=== PATIENT | female | born 1930 | race Caucasian/White ===

== ENCOUNTER 2017-01-20 15:22 | Inpatient (IN) ==
[2017-01-20] MEDS: PROTONIX IV SCH (17:38)
[2017-01-20] MEDS: SODIUM CHLORIDE 0.9% INJ SCH (17:38)
[2017-01-20] MEDS: ZOSYN 3.375 GM in NS 50 ML IV SCH (17:39)
--- NOTE | 2017-01-20 18:21 | Diag Imaging Result Doc PS360 ---
EXAM: CHEST-2 VIEWS HISTORY: SOB TECHNIQUE: AP and lateral chest COMMENT: There is no evidence of acute cardiac or pulmonary disease and compared to 05/22/2015 there is been no significant change in the appearance of the chest. IMPRESSION: Stable chest. Electronically signed by Zachary Calderón 01/20/2017 6:19 PM
[2017-01-20 18:53] LABS: HEMATOCRIT 37.9 % (37.0-47.0); MCH 30.1 PG (27-31); MCHC 31.7 g/dL (33-37); MPV 11.1 FL (7.4-10.4); RBC 3.99 XMIL (4.2-5.4)
[2017-01-20 19:09] LABS: INR 1.16; PROTIME 12.3 Seconds (9.2-11.7)
[2017-01-20 19:43] LABS: ALBUMIN 3.6 g/dL (3.5-5.0); CALCIUM 8.5 mg/dL (8.8-10.2); POTASSIUM 4.7 mmol/L (3.5-5.1); TOTAL BILIRUBIN 0.2 mg/dL (0.20-1.00); TOTAL PROTEIN 5.9 g/dL (6.3-8.3)
[2017-01-20] MEDS: NEURONTIN PO SCH (20:14)
[2017-01-20] MEDS ORDERED: XARELTO PO SCH (21:00)
[2017-01-20] MEDS: HUMALOG SUBQ SCH (22:34)
[2017-01-21] MEDS: ZOSYN 3.375 GM in NS 50 ML IV SCH ×4 (00:40→18:22)
--- NOTE | 2017-01-21 03:34 | HISTORY AND PHYSICAL ---
CHIEF COMPLAINT: Chronic left leg swelling with cellulitis. HPI: She is 86-year-old white female, sustained injury to left leg with linear abrasion in front of the left lower leg associated with secondary infection. Initially she was treated in November. She was seen by 3 different doctors. She has persistent left leg swelling, redness and given 2 rounds of antibiotics. She was seen by a weapons specialist in [place]. Arterial flow studies are normal. Left calf is 42 cm which is 8 cm higher than the right leg. The whole left leg is diffusely swollen and tender. She was given up-to-date on tetanus shot and since she failed with outpatient medical management admitted to the hospital with aggressive IV antibiotics, wound consult and also rule out DVT even though patient is on blood thinners. As a result, a hospital admission was warranted. 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 PAST SURGICAL HISTORY: Thyroid surgery, cholecystectomy, partial hysterectomy , repair of colovesical fistula, benign breast biopsy. MEDICATIONS: Atenolol 50 daily, Celexa 20 daily, folic acid 1 mg daily, potassium 20 mEq daily, Lasix 40 daily, Levaquin 500 daily, Lortab 500 once daily, Neurontin 300 daily, Prilosec 20 mg daily, prednisone 5 mg daily, Prilosec 40 daily, sulindac as needed. ALLERGIES: Celebrex, codeine, Keflex, Lyrica, statin drugs. SOCIAL HISTORY: , 1 child, , lives in [place], no smoking, no alcohol. FAMILY HISTORY: Father of emphysema due to heart problems, mother of childbirth at the age of 32. HEALTH MAINTENANCE: Flu vaccine refused, tetanus 11/2016, DEXA scan 10/2011, colonoscopy 2009. REVIEW OF SYSTEMS: HEENT: No headache. No vision problem. No earache. No sore throat. Neck: No goiter. No lymphadenopathy. No bruit. Cardiopulmonary: No chest pain, shortness of breath, PND, orthopnea. GI: No nausea, vomiting, abdominal pain. : No history of hesitancy, frequency. Swelling of left leg and redness. No obvious focal symptoms or weakness. PHYSICAL EXAMINATION: VITAL SIGNS: Stable. Blood pressure is running high, room air 98%, 5 feet 7, 181 pounds. HEENT: Atraumatic, normocephalic. Pupils equal, react to light. TMs are normal. Nose and throat within normal limits. NECK: Supple. No lymphadenopathy. No goiter. CHEST: Bilateral air entry. No rales, no wheezing. HEART: Sounds are regular. BELLY: Soft, nontender. Good bowel sounds. No masses palpable. EXTREMITIES: Left leg is diffusely swollen 8 cm higher than the right side associated with cellulitis, Sensory exam is intact. Nonhealing callus ulcer on the left foot on the lateral border. No signs of gangrene. Positive Homans sign. NEURO: No obvious neurological deficits. INVESTIGATIONS: CBC, white cell count 7.6, hematocrit 37, platelet 141,000. PT 12, INR 1.1, D- dimer 0.24. SMA 7 is normal. BUN 26, creatinine 1.5, glucose 112, uric acid 5.1, TSH is normal, B12 is in the low side. Chest x-ray stable. ASSESSMENT AND PLAN: 86-year-old white female admitted to the hospital with left leg swelling, redness, cellulitis, not improving with outpatient medical management in November with substantial swelling compared to the right side. 1. Elevation, intravenous antibiotics with Zosyn, wound care consult. 2. Vitamin B12 deficiency on replacement therapy. 3. History of left leg deep vein thrombosis due to homocystinemia, borderline lupus anticoagulant and continue on Xarelto and check the venous Dopplers, homocystinemia and folic acid. 4. History of rheumatoid arthritis on prednisone 5 mg daily. 5. Type 2 diabetes on diet controlled. 6. Hypertension on atenolol 50 mg daily. 7. History of colovesical fistula stable. 8. Chronic nonhealing ulcer on the left side. Recent artery flow studies are normal ARIES 0.9 on both. 9. 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 10. Chronic back pain under care of Dr. Sprague. 11. History of dysphagia due to hiatal hernia and Schatzki ring dilatated by Dr. Edgar January 2015. 12. Health maintenance. Tetanus is up-to-date. Reconcile home medications and will follow up on the pending labs. Discussed with the family. cc: Karsten Lovell MD MTDD
[2017-01-21] MEDS: TENORMIN PO SCH (08:46)
[2017-01-21] MEDS: CELEXA PO SCH (08:47)
[2017-01-21] MEDS: PREDNISONE PO SCH (08:47)
[2017-01-21] MEDS: CYANOCOBALAMIN IM SCH (08:47)
[2017-01-21] MEDS: FOLIC ACID PO SCH (08:47)
--- NOTE | 2017-01-21 08:56 | PROGRESS NOTE ---
DATE: 01/21/2017 SUBJECTIVE: Interval history was reviewed. The patient had venous Doppler done on the left leg, nonoccluded. Proximal superficial femoral vein thrombosis extending down. The patient has been on Xarelto. REVIEW OF SYSTEMS: No chest pain, shortness of breath. Left leg is swollen, inflamed. PHYSICAL EXAMINATION: Vital Signs: Afebrile. Vitals are stable. I's and O's negative 1000 mL. HEENT: Within normal limits. Neck: Supple. Chest: Clear. Heart: Sounds are regular. Abdomen: Belly is soft, nontender. Good bowel sounds. Extremities: Left leg is diffusely swollen and inflamed in the leg. INVESTIGATIONS: CBC, SMA-7 was normal. ASSESSMENT AND PLAN: 1. Chronically occluded left leg DVT due to homocystinemia lupus anticoagulant. Not getting better on Xarelto. Will discontinue and start on IV heparin. 2. B12 deficiency on cyanocobalamin. 3. Cellulitis on IV Zosyn. 4. Chronic rheumatoid arthritis on prednisone. LEVEL OF DOCUMENTATION: 25 minutes. cc: Karsten Lovell MD
[2017-01-21] MEDS: HEPARIN 25,000 UNIT in NS 250 ML IV SCH (11:01)
[2017-01-21] MEDS: HUMALOG SUBQ SCH ×4 (11:14→23:15)
[2017-01-21 11:26] LABS: MANUAL DIFF NEEDED? NO
[2017-01-21] MEDS: NORCO-7.5 PO PRN ×2 (11:36→18:22)
[2017-01-21 11:47] LABS: BASO% 0.1 % (0.0-0.8); EOS# 0.12 X1000 (0.0-0.7); EOS% 1.5 % (0.0-10.0); HEMATOCRIT 37.2 % (37.0-47.0); HEMOGLOBIN 11.7 g/dL (12.0-16.0); IMM GRAN# 0.02 X1000 (0.0-0.04); IMM GRAN% 0.3 % (0.0-0.5); LYMPH# 0.93 X1000 (1.2-3.4); LYMPH% 11.8 % (20.5-51.1); MCH 29.4 PG (27-31); MCHC 31.5 g/dL (33-37); MCV 93.5 FL (81-99); MONO# 0.61 X1000 (0.11-0.59); MONO% 7.8 % (1.7-9.3); NEUT% 78.5 % (42.2-75.2); PLT 136 X1000 (130-400); RBC 3.98 XMIL (4.2-5.4)
[2017-01-21] MEDS: PROTONIX IV SCH (18:23)
[2017-01-21] MEDS: SODIUM CHLORIDE 0.9% INJ SCH (18:23)
[2017-01-21] MEDS: NEURONTIN PO SCH (20:20)
[2017-01-22] MEDS: ZOSYN 3.375 GM in NS 50 ML IV SCH ×4 (00:54→18:05)
[2017-01-22 06:46] LABS: MANUAL DIFF NEEDED? NO
[2017-01-22 06:58] LABS: BASO% 0.3 % (0.0-0.8); EOS# 0.18 X1000 (0.0-0.7); EOS% 2.9 % (0.0-10.0); HEMATOCRIT 37.2 % (37.0-47.0); HEMOGLOBIN 11.6 g/dL (12.0-16.0); IMM GRAN# 0.04 X1000 (0.0-0.04); IMM GRAN% 0.6 % (0.0-0.5); LYMPH# 1.25 X1000 (1.2-3.4); LYMPH% 19.9 % (20.5-51.1); MCHC 31.2 g/dL (33-37); MONO# 0.61 X1000 (0.11-0.59); MONO% 9.7 % (1.7-9.3); MPV 11.2 FL (7.4-10.4); NEUT% 66.6 % (42.2-75.2); PLT 132 X1000 (130-400)
[2017-01-22] MEDS ORDERED: ZOFRAN IV PRN (08:47)
[2017-01-22] MEDS: TENORMIN PO SCH (08:59)
[2017-01-22] MEDS: CELEXA PO SCH (09:00)
[2017-01-22] MEDS: PREDNISONE PO SCH (09:00)
[2017-01-22] MEDS: CYANOCOBALAMIN IM SCH (09:00)
[2017-01-22] MEDS: FOLIC ACID PO SCH (09:02)
[2017-01-22] MEDS: HEPARIN 25,000 UNIT in NS 250 ML IV SCH (10:46)
[2017-01-22] MEDS: HUMALOG SUBQ SCH ×4 (13:53→21:00)
[2017-01-22] MEDS: NORCO-7.5 PO PRN (15:22)
[2017-01-22] MEDS: SODIUM CHLORIDE 0.9% INJ SCH (18:05)
[2017-01-22] MEDS: PROTONIX IV SCH (18:05)
--- NOTE | 2017-01-22 18:42 | PROGRESS NOTE ---
DATE: 01/22/2017 SUBJECTIVE: The patient complains of left leg swelling, but is improved. No chest pain or shortness of breath. REVIEW OF SYSTEMS: None reported. EXAM: Vitals are stable. HEENT: Within normal limits. Neck: Supple. Chest : Clear. Heart: Sounds are regular. Abdomen: Belly is soft, nontender. Good bowel sounds. Left leg swelling is decreased to 5 cm compared to the 8 cm. ASSESSMENT AND PLAN: 1. Chronic deep vein thrombosis with venous hypertension associated with cellulitis. Plan is IV heparin next 48 hours. Increase the xarelto to twice daily after that. 2. Cellulitis. Continue IV antibiotics with Medi Honey on the anterior emerson. 3. Compression stockings. Arterial flow studies are normal and discussed with the family. LEVEL OF DOCUMENTATION: 25 minutes. cc: Karsten Lovell MD MTDD
[2017-01-22] MEDS: NEURONTIN PO SCH (20:24)
[2017-01-23] MEDS: ZOSYN 3.375 GM in NS 50 ML IV SCH ×4 (00:52→17:26)
[2017-01-23 06:47] LABS: BASO% 0.2 % (0.0-0.8); EOS# 0.14 X1000 (0.0-0.7); EOS% 2.2 % (0.0-10.0); HEMATOCRIT 37.3 % (37.0-47.0); HEMOGLOBIN 11.8 g/dL (12.0-16.0); IMM GRAN# 0.03 X1000 (0.0-0.04); IMM GRAN% 0.5 % (0.0-0.5); LYMPH% 17.6 % (20.5-51.1); MANUAL DIFF NEEDED? NO; MCH 29.6 PG (27-31); MCHC 31.6 g/dL (33-37); MCV 93.7 FL (81-99); MONO# 0.52 X1000 (0.11-0.59); MONO% 8.3 % (1.7-9.3); NEUT% 71.2 % (42.2-75.2); PLT 141 X1000 (130-400); RBC 3.98 XMIL (4.2-5.4)
[2017-01-23] MEDS: HUMALOG SUBQ SCH ×4 (06:47→21:00)
[2017-01-23] MEDS ORDERED: MIRALAX PO ONE (08:35)
[2017-01-23] MEDS: HEPARIN 25,000 UNIT in NS 250 ML IV SCH (09:29)
[2017-01-23] MEDS: CYANOCOBALAMIN IM SCH (09:31)
[2017-01-23] MEDS: FOLIC ACID PO SCH (09:31)
[2017-01-23] MEDS: TENORMIN PO SCH (09:31)
[2017-01-23] MEDS: PREDNISONE PO SCH (09:31)
[2017-01-23] MEDS: CELEXA PO SCH (09:31)
[2017-01-23] MEDS: NORCO-7.5 PO PRN ×2 (09:37→16:04)
--- NOTE | 2017-01-23 10:59 | Extremity Venous Study ---
PROCEDURE NAME: Venous U/S Left Leg - 01/20/2017 REFERRING PHYSICIAN: Anjel Lovell MD. INTERPRETING PHYSICIAN: Immanuel Dominguez MD. SALES AND MARKETING ANALYST: Jaja. INDICATIONS: The patient has left leg edema. A D-dimer of 0.24. SUMMARY: The left lower extremity is imaged. The common femoral, superficial femoral, deep femoral, popliteal, posterior tibial, peroneal, and greater saphenous veins are imaged. Doppler is used to evaluate the veins for spontaneity, phasicity, respiratory excursion, and distal augmentation. There is partial compressibility of the distal left superficial femoral vein and the popliteal vein. Some echogenicity is noted. All other veins are compressible. The right common femoral veins are imaged for comparison purposes and is compressible. There is some reflux noted on the left common femoral vein and the greater saphenous vein. INTERPRETATION: No acute deep venous thrombosis identified, probably some chronic old DVT noted in the distal left superficial femoral vein and popliteal vein. There is flow present. Reflux is noted in the left common femoral vein and greater saphenous vein. cc: MD Karsten Kebede MD
[2017-01-23] MEDS: PROTONIX IV SCH (17:26)
[2017-01-23] MEDS: SODIUM CHLORIDE 0.9% INJ SCH (17:26)
--- NOTE | 2017-01-23 18:25 | PROGRESS NOTE ---
DATE: 01/23/2017 SUBJECTIVE: The patient is slowly improving. REVIEW OF SYSTEMS: No chest pain, shortness of breath, constipation. PHYSICAL EXAMINATION: Vital Signs: Afebrile. Vitals are stable. HEENT: Atraumatic, normocephalic. Pupils equal, react to light. Neck: Supple. No lymphadenopathy. Chest: Clear to auscultation. Heart: Sounds are regular. Abdomen: Belly is soft, nontender. Good bowel sounds. No masses palpable. Extremities: Left leg is swollen. Slowly improving. Redness is improving. ASSESSMENT AND PLAN: 1. Left leg cellulitis, improving on IV Zosyn. 2. Chronic leg edema, due to chronic deep venous thrombosis, not improving with Xarelto. Continue on IV heparin. 3. Constipation, laxatives. 4. Discussed with Wound Care consult, needs to know how to put compression stockings to prevent the venous reflux disease and probably increasing the Xarelto twice daily for 21 days. Hopefully will be discharged home in the morning. LEVEL OF DOCUMENTATION: 25 minutes. cc: Karsten Lovell MD
[2017-01-23] MEDS ORDERED: HEPARIN 25,000 UNIT in NS 250 ML IV SCH (18:46)
[2017-01-23] MEDS: NEURONTIN PO SCH (21:46)
[2017-01-24] MEDS: ZOSYN 3.375 GM in NS 50 ML IV SCH ×2 (02:34→06:03)
[2017-01-24] MEDS: HUMALOG SUBQ SCH (06:07)
[2017-01-24 06:22] LABS: MANUAL DIFF NEEDED? NO
[2017-01-24 06:30] LABS: BASO% 0.3 % (0.0-0.8); EOS# 0.19 X1000 (0.0-0.7); EOS% 2.9 % (0.0-10.0); HEMATOCRIT 38.3 % (37.0-47.0); IMM GRAN# 0.03 X1000 (0.0-0.04); IMM GRAN% 0.5 % (0.0-0.5); LYMPH# 1.12 X1000 (1.2-3.4); LYMPH% 17.3 % (20.5-51.1); MCH 29.1 PG (27-31); MCHC 31.3 g/dL (33-37); MONO# 0.58 X1000 (0.11-0.59); MPV 11.3 FL (7.4-10.4); PLT 137 X1000 (130-400); RBC 4.12 XMIL (4.2-5.4)
[2017-01-24 08:10] VITALS: BP 136/48
[2017-01-24] MEDS ORDERED: PREVNAR 13 IM ONE (08:58)
[2017-01-24] MEDS ORDERED: MIRALAX PO SCH (09:00)
[2017-01-24] MEDS: CYANOCOBALAMIN IM SCH (09:45)
[2017-01-24] MEDS: PREDNISONE PO SCH (09:45)
[2017-01-24] MEDS: TENORMIN PO SCH (09:45)
[2017-01-24] MEDS: CELEXA PO SCH (09:45)
[2017-01-24] MEDS: FOLIC ACID PO SCH (09:46)
--- NOTE | 2017-01-26 14:00 | DISCHARGE SUMMARY ---
ADMISSION DATE: 01/20/2017 DISCHARGE DATE: 01/24/2017 DISCHARGING DIAGNOSIS: Chronic left leg cellulitis, due to exacerbation of dependent edema due to chronic venous hypertension with chronic deep vein thrombosis, not improving with Xarelto. SECONDARY DIAGNOSES: 1. Deep vein thrombosis due to lupus anticoagulant and homocystinemia. 2. Type 2 diabetes. 3. Metabolic syndrome. 4. Hypertension. 5. Osteoarthritis. 6. Osteoporosis. 7. Acid reflux disease. 8. Seronegative rheumatoid arthritis. 9. Chronic back pain due to bulging disk. CONSULTATIONS: Wound Care. PROCEDURES: Venous Doppler. Chronic DVT not resolving, worsening all the way from superficial femoral to the popliteal vein. BRIEF HISTORY: Please see the H and P that was done on 01/20/2017. In brief, she is an 86-year- old white female. Sustained injury to the left leg with linear abrasion on the anterior emerson. Was treated by 3 different physicians with infection. She was evaluated by a foot doctor in [place]. He did the arterial flow studies. ARIES 0.9 on the left and 1.0 on the right side. She has chronic left leg swelling due to chronic DVT. Not wearing compression stockings. Not taking the Xarelto. She does have thrombophilia due to homocystinemia and lupus anticoagulant. The patient also failed with outpatient medical management. She was evaluated in my office with cellulitis and a lot of swelling in the left leg. The mid-calf circumference was 18 inches, compared to the 13 inches on the right side. HOSPITAL COURSE: She was given IV antibiotics, elevation, IV heparin. Wound care consult was obtained. She put Medi Honey patch on the linear abrasion on the emerson. Also recommended compression stockings up to thigh high all the time. Decreased the venous hypertension, as well as chronic pain in the left leg. At the time of discharge, the swelling is much improved. It was down by 3 inches and still 2 inches bigger than the right calf. She was advised to take Xarelto 15 mg p.o. b.i.d. for 21 days, and go back to once a day. LABORATORIES: CBC: White cell count 6.4, hematocrit 38, platelets 137,000. SMA-7: Sodium 140, potassium 4.7, chloride 103, BUN 26, creatinine 1.5, glucose 112. Liver function tests were normal. B12 was 271. TSH is 2.70. B12 on the low side. The patient was given B12 injections. DISCHARGE INSTRUCTIONS: Tenormin 50 mg daily, prednisone 5 mg daily, Celexa 20 daily, gabapentin 300 daily, [place] 7.5 as needed for pain, Axid 150 daily, folic acid 1 mg daily, vitamin B12 shot once a month, sulindac as needed, Xarelto 15 mg p.o. b.i.d. for 21 days and follow up in my office next week, continue on Xarelto after 21 days 15 mg once a day, Stage I thigh- high compression stockings. Elevation of left leg. At the time of discharge, the mid-calf on the left calf 15 inches, on the right side it is 13inches. cc: Karsten Lovell MD MTDD
== END 2017-01-24 10:43 | disposition home or self-care (01) ==
LOC: DIRADM 15:22 → 3N 15:53
PROVIDERS: ADMIT Internal Medicine; ATTEND Internal Medicine